=== PATIENT | male | born 1970 | race Caucasian/White ===

== ENCOUNTER 2023-10-22 09:09 | Emergency (ER) | payer OTHER, SELFPAY ==
[2023-10-22 09:19] VITALS: BP 146/91
--- NOTE | 2023-10-22 10:37 | ED.MUSCINJ ---
HPI-Injury
General
Chief Complaint: Musculo-Skeletal Complaint
Source: patient
Exam Limitations: none
Nursing documentation reviewed up to this point in time: agreed with
Travel History
Have you had any contact with someone who has COVID-19?: No
Do you have any symptoms of coronavirus? Fever > 100 degrees, chills, cough, shortness of breath, sore throat, loss of taste or smell, muscle aches, or headache?: No
History of Present Illness-Injury
Initial Injury comments:
53-year-old male history of HTN, HLD, psoriatic arthritis, enthesitis, anxiety presents with right wrist pain and weakness. 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
09/08/2023 and has had pain and some numbness in the past week. He is worries about tearing a ligament or tendon due to his enthesitis. He has appointment with Dr. Zhou in 4 days.
He is requesting an xray of the wrist and a splint. He states he wants nothing for pain.
He admits he has extreme anxiety and a negative wrist xray will make him feel better.
Past History
Past History
ED Past Medical History: HTN, Hypercholesterolemia, Psychiatric ('extreme anxiety') and Other (Psoriatic arthritis, enthesitis)
ED Past Surgical History: Orthopedic and Other (Inguinal hernia repair)
Social History
Tobacco: Non-smoker
Alcohol: None
Drug: None
Personal:
Living: with family
Review of Systems
Review of Systems
Allergies reviewed?: Yes
All Other Systems: ROS reviewed and negative except as documented in HPI and ROS
Constitutional: Denies fever
Musculoskeletal: Reports other (pain right wrist. Chronic pains various areas of body followed by Rheumatology)
Skin: Reports no symptoms
Phy Exam
Physical Exam
Physical Exam:
PHYSICAL EXAMINATION:
General: no apparent distress, not acutely ill
Neuro: alert and oriented.
Psychiatric: well kept. interactive and cooperative
Musculoskeletal: R wrist with no noteable swelling, no redness or warmth. Tender distal radius, Full FOM fingers and wrist. Distal n/v intact. Moves with ease
Skin: Warm, pink.
Injury Course
Orders/Labs/Results
Orders:
Orders
10/22/23 09:54
Wrist, Right 3 Views [CR Wrist - Right Min 3 Views] Urgent
Comment:
Reason For Exam: pain after injection
10/22/23 09:56
Thumb Spica Right-Treatment ONCE
MDM/Problems Addressed
MDM/Problems Addressed:
53-year-old male history of HTN, HLD, psoriatic arthritis, enthesitis, anxiety presents with right wrist pain and weakness. 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
09/08/2023 and has had pain and some numbness in the past week. He is worries about tearing a ligament or tendon due to his enthesitis. He has appointment with Dr. Zhou in 4 days.
He is requesting an xray of the wrist and a splint. He states he wants nothing for pain.
He admits he has extreme anxiety and a negative wrist xray will make him feel better.
10/22/2023 1041 AM
Right wrist radiology x-ray report read: no acute osseous or radiopaque soft tissue
Thumb spica splint applied. Pt will f/u as scheduled with Dr. Zhou in 4 days.
Chronic conditions affecting care: Immunosuppressed (Psoriatic arthritis on Methotrexate, Taltz)
*Critical Care Note
Total Time (30-74mins, 75-104mins- exclusive of procedures): Not Applicable
ED Attending Note
-
Portions of this chart may have been created with voice recognition software.� Occasional wrong word or��sound alike� substitutions may have occurred due to the inherent limitations of voice recognition software.
Discharge Plan
Departure
Patient Disposition: Home (Routine Discharge)
Date of Disposition: 10/22/23
Time of Disposition: 10:45
Patient with high blood pressure during this ER visit?: Yes
Condition: Good
Discharge Problem:
Right wrist pain
Instructions: Muscle and Bone Pain (DC)
Prescriptions:
No Action
nebivolol [Bystolic] 5 mg Tablet
5 mg PO DAILY
Baby Aspirin
81 mg PO DAILY
Fish Oil
6,000 mg PO DAILY
Taltz Autoinjector
80 mg SC QMONTH
Vyvanse
60 mg PO DAILY
Xanax Xr
3 mg PO BID
atorvastatin
40 mg PO DAILY
chlorthalidone
25 mg PO DAILY
duloxetine
80 mg PO DAILY
hydrocortisone acetate [Anusol-HC] 25 mg suppository
[address] HS Qty: 24 0RF
Referrals:
Chandu Zhou MD [Active] - Keep scheduled appt
Varghese Heath MD [Family Provider] -
Activity Restrictions/Additional Instructions:
As we discussed, your wrist x-ray is normal
Where the splint until further instructed by Dr. Zhou, you may remove it for bathing
Interventions
Interventions:
*General Assessment Last Done: 10/22/23 11:01
*Nursing Disposition Last Done: 10/22/23 11:01
ED-Musculoskeletal Assessment Last Done: 10/22/23 09:30
Discharge Date and Time
Discharge Date/Time: 10/22/23 11:02
== END 2023-10-22 11:02 | disposition home or self-care (01) ==
LOC: EMR 09:09
PROVIDERS: EMERGENCY PHYSICIAN Emergency Medicine; FAMILY PHYSICIAN Family Medicine
DX: M25.531 Pain in right wrist (principal); D84.81 Immunodeficiency due to conditions classified elsewhere; I10 Essential (primary) hypertension
CPT/HCPCS: 99283; 29125; 73110

== ENCOUNTER 2024-02-16 19:09 | Emergency (ER) | payer OTHER, SELFPAY ==
[2024-02-16 19:14] VITALS: BP 159/93; BMI 31.6
--- NOTE | 2024-02-16 20:11 | ED.MUSCINJ ---
HPI-Injury
General
Chief Complaint: Extremity Pain (non-traumatic)
Source: patient and spouse
Exam Limitations: none
Time Seen by Provider: 02/16/24 19:41
Nursing documentation reviewed up to this point in time: agreed with
History of Present Illness-Injury
Is this injury a work related problem?: No
Is pt an associate of [facility]/[place]?: No
Initial Injury comments:
53-year-old male right wrist pain, he was moving an object and banged it into a metal dumpster just behind his wrist on the right week or 2 ago, has been having fairly constant pain since then worse with movement better with rest, has a history of
psoriasis perhaps mild psoriatic arthritis, he is on methotrexate did not tolerate steroids, previously on some narcotic meds after surgery does not want to be on any narcotics, followed at [facility] for rheumatology also hand
surgery he has had an injection on the volar surface of the same wrist by hand surgery previously apparently because methotrexate can get very high doses of nonsteroidals no fevers, has been using a volar splint which helps but is rubbing up against
the tender area
Past History
Past History
ED Past Medical History: HTN, Hypercholesterolemia, Psychiatric ('extreme anxiety') and Other (Psoriatic arthritis, )
ED Past Surgical History: Orthopedic and Other (Inguinal hernia repair)
Social History
Tobacco: Non-smoker
Alcohol: None
Drug: None
Personal:
Living: with family
Review of Systems
Review of Systems
All Other Systems: Not applicable
Musculoskeletal: Reports joint pain, muscle pain and muscle stiffness
Phy Exam
Physical Exam
Physical Exam:
Physical Exam
General: no apparent distress, not acutely ill
Lungs: no acute respiratory distress. clear bilaterally
Neuro: alert and oriented. no focal neurological deficits
Skin: no rash
Psychiatric: well kept. interactive and cooperative
Extremities: Tender distal right wrist neurovascularly intact, no warmth pain is worse with pronation supination and direct palpation
Injury Course
Orders/Labs/Results
Orders:
Orders
02/16/24 19:16
Forearm, Right 2 View [CR Forearm - Right 2 View] Urgent
Comment:
Reason For Exam: pain
02/16/24 20:08
Splints/Slings/Crut- Treatment ONCE
MDM/Problems Addressed
Differential Diagnosis Includes:
Contusion, fracture, neuropathy, unlikely RSD, fracture related to his underlying rheumatologic issue, tendinitis
*Radiology
Radiology exam reviewed: radiology read reviewed
*Pulse Oximetry
Patient hypoxic: no
*Critical Care Note
Total Time (30-74mins, 75-104mins- exclusive of procedures): Not Applicable
Update Note
Update Note:
Update lumbar status with patient and spouse, he hesitant to take steroids that he does not tolerate them, likewise for narcotics NSAIDs, he asked about MRI this evening, I told him there are no indication for that Quail with IV able to get that,
has seen a hand specialist and [facility] was given the name for local hand specialist, he was asking about topical Voltaren and splint I think is a reasonable option tonight will try to make up a padded splint to immobilize him put
him in a sling have him follow-up with his outpatient physicians
ED Attending Note
-
Portions of this chart may have been created with voice recognition software.� Occasional wrong word or��sound alike� substitutions may have occurred due to the inherent limitations of voice recognition software.
Discharge Plan
Departure
Date of Disposition: 02/16/24
Time of Disposition: 20:16
Condition: Good
Prescriptions:
No Action
nebivolol [Bystolic] 5 mg Tablet
5 mg PO DAILY
Baby Aspirin
81 mg PO DAILY
Fish Oil
6,000 mg PO DAILY
Taltz Autoinjector
80 mg SC QMONTH
Vyvanse
60 mg PO DAILY
Xanax Xr
3 mg PO BID
atorvastatin
40 mg PO DAILY
chlorthalidone
25 mg PO DAILY
duloxetine
80 mg PO DAILY
hydrocortisone acetate [Anusol-HC] 25 mg suppository
25 mg DE HS Qty: 24 0RF
Interventions
Interventions:
*Risk Screen - Suicide Last Done: 02/16/24 19:14
*General Assessment Last Done: 02/16/24 19:56
*Neglect/Abuse Screening Last Done: 02/16/24 19:14
ED- Fall Risk Assessment Last Done: 02/16/24 19:14
*ED COVID-19 Vaccine History Last Done: 02/16/24 19:56
ED-Skin Assessment Last Done: 02/16/24 19:56
ED-Musculoskeletal Assessment Last Done: 02/16/24 19:56
Discharge Date and Time
Print Language: FAROESE
== END 2024-02-16 20:53 | disposition home or self-care (01) ==
LOC: EMR 19:09
PROVIDERS: EMERGENCY PHYSICIAN Emergency Medicine; FAMILY PHYSICIAN Family Medicine
DX: S60.211A Contusion of right wrist, initial encounter (principal); X58.XXXA Exposure to other specified factors, initial encounter; M25.531 Pain in right wrist; I10 Essential (primary) hypertension; E78.00 Pure hypercholesterolemia, unspecified
CPT/HCPCS: 99283; 73090